=== PATIENT | female | born 1955 | race Caucasian/White ===

== ENCOUNTER → 2016-08-05 | Outpatient (CLI) | payer OTHER ==
--- NOTE | 2016-08-05 12:32 | XR ---
Lumbar spine HISTORY: Numbness, muscle strain, low back pain 3 views of the lumbar spine No comparisons Bone mineralization is reduced. Lumbar vertebral bodies show preserved height and alignment. There is a mild levoscoliosis centered at the mid lumbar spine. Multilevel spondylosis is present. Loss of di sc height present at L3-4, L4-5 and possibly L5-S1. IMPRESSION: Degenerative disc disease, osteopenia. Slight spinal curvature.
--- NOTE | 2016-08-05 12:33 | XR ---
Right hip HISTORY: Pain, numbness down right leg 2 views of the right hip Bone mineralization, joint spaces and alignment are maintained IMPRESSION: Normal right hip.
== END ==
LOC: RADXRMAIN 11:55
PROVIDERS: ATTEND Emergency Medicine
DX: S39.012A Strain of muscle, fascia and tendon of lower back, initial encounter (principal); M51.36 Other intervertebral disc degeneration, lumbar region; R20.9 Unspecified disturbances of skin sensation
CPT/HCPCS: 72100; 73502